=== PATIENT | female | born 1995 | race Hispanic/Latino ===

== ENCOUNTER 2021-01-05 01:24 | Emergency (ER) | payer MEDICAID, SELFPAY ==
[2021-01-05] MEDS ORDERED: Ketorolac Tromethamine 30 MG/ML VIAL ONE (02:04)
[2021-01-05] MEDS ORDERED: Ondansetron PF 4 MG/2 ML Vial ONE (02:04)
== END 2021-01-05 03:25 | disposition home or self-care (01) ==
LOC: ERS 01:24
DX: R10.10 Upper abdominal pain, unspecified (principal); E80.6 Other disorders of bilirubin metabolism; R50.9 Fever, unspecified; F17.290 Nicotine dependence, other tobacco product, uncomplicated
CPT/HCPCS: 76705; 96374; 96375; J1885; J2405

== ENCOUNTER 2024-03-02 14:02 | Outpatient (CLI) | payer OTHER | END 2024-03-02 14:03 | disposition home or self-care (01) | LOC: SCSMRI 14:02 | PROVIDERS: ATTEND Orthopaedic Surgery | DX: R22.32 Localized swelling, mass and lump, left upper limb (principal) ==

== ENCOUNTER 2024-03-22 13:22 | Outpatient (CLI) | payer OTHER ==
[2024-03-22 14:15] LABS: #Basophils Less than 0.03 10x3/uL (0.0-0.2); %Basophils 0.2 % (0.0-1.0); %Eosinophils 0.8 % (0.0-10.0); %Lymphocytes 24.2 % (21.0-51.0); %Monocytes 6.6 % (0.0-10.0); %Neutrophils 67.9 % (42.0-75.0); Hematocrit 35.8 % (36.0-47.0); Hemoglobin 12.1 g/dL (12.0-16.0); Mean Corpuscular HGB CONC 33.8 g/dL (32.0-36.0); Mean Corpuscular Hemoglobin 30.1 pg (27.0-31.0); Mean Corpuscular Volume 89.1 fL (78.0-98.0); Mean Platelet Volume 9.1 fL (7.4-10.4); Platelet Count 247 10x3/uL (130-400); RBC Distribution Width 12.8 % (11.5-14.5); Red Blood Cell (RBC) Count 4.02 mill/uL (4.20-5.40)
[2024-03-22 14:26] LABS: BHCG - Serum Negative (NEGATIVE); Pregs Control Background? CLEAR/WHITE (CLR/WHITE); Pregs Control Bar Appear? YES (CONTROL BAR)
== END 2024-03-22 13:23 | disposition home or self-care (01) ==
LOC: LABBT 13:22
PROVIDERS: ATTEND Orthopaedic Surgery
DX: Z01.812 Encounter for preprocedural laboratory examination (principal); R22.32 Localized swelling, mass and lump, left upper limb; M95.5 Acquired deformity of pelvis
CPT/HCPCS: 84703; 85025

== ENCOUNTER 2024-03-26 06:36 | Day surgery (SDC) | payer OTHER ==
[2024-03-22 13:37] VITALS: BMI 21.7
[2024-03-26] MEDS ORDERED: CEFAZOLIN 2 GM VIAL ONE (07:28)
[2024-03-26] MEDS ORDERED: Bupivacaine PF 0.5% 30 ML VIAL ONE (09:29)
[2024-03-26] MEDS ORDERED: PROPOFOL 20 ML ONE ×2 (09:33→09:56)
[2024-03-26] MEDS ORDERED: Midazolam HCl 2 mg/2 ml Vial ONE (09:33)
[2024-03-26] MEDS ORDERED: Lidocaine 2% PF 5 ML VIAL ONE (09:33)
[2024-03-26] MEDS ORDERED: fentaNYL PF 100 MCG/2 ML SYRINGE ONE (09:33)
[2024-03-26] MEDS ORDERED: Dexamethasone 20 MG/5 ML VIAL ONE (09:54)
[2024-03-26] MEDS ORDERED: Ondansetron PF 4 MG/2 ML Vial ONE (09:54)
[2024-03-26] MEDS ORDERED: Ketorolac Tromethamine 30 MG (1 mL) VIAL ONE (09:59)
[2024-03-26] MEDS ORDERED: Meperidine HCl/PF 25 MG (1 mL) VIAL ONE (11:04)
== END 2024-03-26 12:50 | disposition home or self-care (01) ==
LOC: SDC 06:36
PROVIDERS: ATTEND Orthopaedic Surgery
PROC: 0JBH0ZZ Excision of Left Lower Arm Subcutaneous Tissue and Fascia, Open Approach (ICD-10-PCS; principal; 2024-03-26)
DX: R22.32 Localized swelling, mass and lump, left upper limb (principal); F41.9 Anxiety disorder, unspecified; F31.9 Bipolar disorder, unspecified; Z87.891 Personal history of nicotine dependence; Z91.018 Allergy to other foods; Z79.2 Long term (current) use of antibiotics
CPT/HCPCS: 88304; A6223; A6258; J0665; J1100; J1885; J2175; J2250; J2405; J2704